=== PATIENT | male | born 1975 | race Caucasian/White ===

== ENCOUNTER 2019-05-07 19:10 | Inpatient (IN) | payer OTHER ==
[~2019-05-07] VITALS: Ht 182.9 cm; Wt 61.2 kg
[2019-05-07 19:58] LABS: BASOPHILS ABSOLUTE AUTO 0.04 K/mm3 (0.00-0.23); BASOPHILS PERCENT AUTO 0 % (0-2); EOSINOPHILS PERCENT AUTO 0 % (0-6); Hematocrit 46.8 % (37.0-53.0); Hemoglobin 16.4 g/dL (13.5-17.5); IMMATURE GRAN ABSOLUTE AUTO 0.09 K/mm3 (0.00-0.10); IMMATURE GRAN PERCENT AUTO 1 % (0-1); LYMPHOCYTES ABSOLUTE AUTO 0.84 K/mm3 (0.84-5.20); LYMPHOCYTES PERCENT AUTO 7 % (21-46); MONOCYTES ABSOLUTE AUTO 1.46 K/mm3 (0.16-1.47); MONOCYTES PERCENT AUTO 11 % (4-13); Mean Corpuscular HGB 33.4 pg (26.0-34.0); Mean Corpuscular Volume 95 fL (80-100); Mean Platelet Volume 8.9 fL (9.1-12.4); NEUTROPHILS ABSOLUTE AUTO 10.43 K/mm3 (1.96-9.15); NEUTROPHILS PERCENT AUTO 81 % (41-73); Platelet Count 207 K/mm3 (150-400); RDW Coefficient Variation 11.9 % (11.7-14.2); RDW Standard Deviation 41.8 fL (35.1-46.3); Red Blood Cell Count 4.91 M/mm3 (4.30-5.90); White Blood Cell Count 12.86 K/mm3 (4.00-11.30)
[2019-05-07 20:19] LABS: Alanine Aminotransfer (ALT/SGP 22 U/L (12-78); Albumin, Blood 3.5 g/dL (3.4-5.0); Albumin/Globulin Ratio 0.7 (0.8-1.8); Alk Phos 98 U/L (50-136); Anion Gap 6 mmol/L (6-16); Aspartate Aminotrans (AST/SGOT 21 U/L (12-37); Bilirubin, Total 0.5 mg/dL (0.1-1.0); Blood Urea Nitrogen 10 mg/dL (8-24); Bun/Creatinine Ratio 8.3 (12.0-20.0); CO2, Blood 27 mmol/L (21-32); Calcium, Blood 9.2 mg/dL (8.5-10.1); Chloride, Blood 94 mmol/L (98-108); Globulin, Blood 4.8 g/dL (2.2-4.0); Glomerular Filtration Rate >60 (60-); Glucose, Blood 133 mg/dL (70-99); Potassium, Blood 3.5 mmol/L (3.5-5.5); Sodium, Blood 127 mmol/L (136-145); Total Protein, Blood 8.3 g/dL (6.4-8.2)
[2019-05-07 20:40] LABS: Source, Urine Clean Catch
[2019-05-07 20:45] LABS: Appearance, Urine Clear (Clear); Bilirubin, Urine Neg (Neg); Blood, Urine 4+ (Neg); Color, Urine Amber (P-Yellow); Glucose Qualitative, Urine Neg (Neg); Ketones, Urine Neg (Neg); Leukocyte Esterase, Urine 3+ (Neg); Nitrite, Urine Neg (Neg); Protein, Urine 3+ (Neg); Specific Gravity, Urine 1.015 (1.003-1.022); Urobilinogen, Urine 1+ (Normal)
[2019-05-07 20:51] LABS: Bacteria Many /hpf; Squamous Epithelial Cells Not Seen /hpf (Few); White Blood Cells, Urine 50-100 /hpf (0-5)
--- NOTE | 2019-05-08 01:23 | NUR ---
PATIENT IS A NEW ADMIT FROM THE ED. AXOX 4 AND INDEPENDENT. SELF TRANSFER FROM [facility] TO BED. DENIES PAIN, SOB, AND N/V. VSS/AFEBRILE. PATIENT ORIENTED TO ROOM AND CALL LIGHT SYSTEM. ON ROOM AIR. TEMP DOWN FROM 101.4 TO 98.6. PATIENT REFUSED FLU VACCINE AND LOVENOX INJECTION. WATCHING TV. CALL LIGHT IN REACH. WILL CONTINUE TO MONITOR.
--- NOTE | 2019-05-08 01:43 | NUR ---
NS INFUSING AT 100 mL/HR PER EMAR. PATIENT REFUSED TO SIGN BLOOD CONSENT FORM AND REFUSED SCUDS. WATCHING TV. CALL LIGHT IN REACH.
--- NOTE | 2019-05-08 04:40 | NUR ---
SHIFT SUMMARY PATIENT HAD NO ACUTE CHANGES OBSERVED. AXOX 4 AND INDEPENDENT IN THE ROOM. PIV REMAINS INTACT. NS INFUSING AT 100 mL/HR. DENIES PAIN, SOB, AND N/V. VSS/AFEBRILE. REPORTS SMOKES CANNABIS 3 X'S/DAY. AND CEDS 1/3 PK TO ONE PACK/DAY. HX OF ETOH DRINKING 6 PACK BEER/DAY UP TO TWO WEEKS AGO. REFUSED FLU VACCINE, SCUDS, LOVENOX, AND SIGNING BLOOD CONSENT FORM. WATCHED TV ON/OFF T/O THE SHIFT. COOPERATIVE WITH CARE. CALL LIGHT IN REACH. BED IN LOWEST POSITION. WILL CONTINUE TO MONITOR UNTIL DAY SHIFT NURSE ASSUMES CARE.
[2019-05-08 05:08] LABS: BASOPHILS ABSOLUTE AUTO 0.02 K/mm3 (0.00-0.23); BASOPHILS PERCENT AUTO 0 % (0-2); EOSINOPHILS PERCENT AUTO 0 % (0-6); Hemoglobin 14.4 g/dL (13.5-17.5); IMMATURE GRAN ABSOLUTE AUTO 0.03 K/mm3 (0.00-0.10); IMMATURE GRAN PERCENT AUTO 0 % (0-1); LYMPHOCYTES ABSOLUTE AUTO 0.95 K/mm3 (0.84-5.20); LYMPHOCYTES PERCENT AUTO 10 % (21-46); MONOCYTES ABSOLUTE AUTO 1.02 K/mm3 (0.16-1.47); MONOCYTES PERCENT AUTO 10 % (4-13); Mean Corpuscular HGB Conc 34.3 g/dL (31.5-36.5); Mean Corpuscular Volume 96 fL (80-100); Mean Platelet Volume 9.2 fL (9.1-12.4); NEUTROPHILS ABSOLUTE AUTO 7.86 K/mm3 (1.96-9.15); NEUTROPHILS PERCENT AUTO 80 % (41-73); Platelet Count 163 K/mm3 (150-400); RDW Coefficient Variation 11.9 % (11.7-14.2); RDW Standard Deviation 42.7 fL (35.1-46.3); Red Blood Cell Count 4.36 M/mm3 (4.30-5.90); White Blood Cell Count 9.88 K/mm3 (4.00-11.30)
[2019-05-08 05:35] LABS: Anion Gap 7 mmol/L (6-16); Blood Urea Nitrogen 11 mg/dL (8-24); Bun/Creatinine Ratio 8.9 (12.0-20.0); CO2, Blood 24 mmol/L (21-32); Calcium, Blood 8.1 mg/dL (8.5-10.1); Chloride, Blood 102 mmol/L (98-108); Creatinine, Blood 1.24 mg/dL (0.60-1.20); Glomerular Filtration Rate >60 (60-); Glucose, Blood 118 mg/dL (70-99); Potassium, Blood 3.6 mmol/L (3.5-5.5); Sodium, Blood 133 mmol/L (136-145)
--- NOTE | 2019-05-08 09:30 | NUR ---
PT PLEASANT COOP DENIES PAIN. 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 HOPING TO GO TO WORK SOON. H/R REG, NO MURMER NOTED. NO TELE. LUNGS CLEAR, RESP EASY, UNLABORED, ON R.A. BT X4 LAST BM LOOSE LAST NITE. VOIDS INDEPENDANT TO BATHROOM. BED IN LOW POSITION, CALL LITE IN REACH, CALLS APPROP
--- NOTE | 2019-05-08 18:22 | NUR ---
PT GOING OUT TO SMOKE
--- NOTE | 2019-05-09 06:24 | NUR ---
SHIFT SUMMARY NO ACUTE EVENTS OVERNIGHT. PATIENT UPSET THAT HE IS ADMITTED TO HOSPITAL FOR MULTIPLE DAYS. EXPLAINED TO PATIENT THE NEED TO WAIT FOR BLOOD CULTURES AND PATIENT VOICED HIS UNDERSTANDING. PATIENT SPIKED FEVER OF 101.0, TYLENOL GIVEN AND PATIENT NOW AFEBRILE AND RESTING IN BED. WILL CONTINUE TO MONITOR.
--- NOTE | 2019-05-09 07:07 | NUR ---
PATIENT REFUSED TO LET ME GET THIS MORNING VITALS SIGNS DUE TO HIM SAYING THAT SOMEONE ALREAFY GOT THEM ABOUT 30 MINUTES AGO. PATIENT WAS NOT HAPPY THAT I WAS IN THERE AGAIN. RN NOTIFIED.
--- NOTE | 2019-05-09 16:07 | NUR ---
SHIFT SUMMARY: PT HAS BEEN A/O AND DENIES PAIN. FIRST THING THIS MORNING THE PT WAS ASKING ABOUT WHEN HE CAN LEAVE. HIS DEMEANOR IS VERY DEFENSIVE AND ACCUSATORY. HE ASKED ABOUT THE SCHEDULING OF HIS IV ABO AND WHEN THIS NURSE REVIEWED THE ORDER WITH HIM HE SAID THAT WAS DIFFERENT THAN WHAT THE NIGHT NURSE TOLD HIM AND SAID THAT "THEY" MUST HAVE LIED TO HIM. THIS NURSE ASSURED HIM THAT THE ABO ARE DOSED AND ORDERED BY THE DOCTOR AND THE PHARMACY. PT REQUESTED TO TAKE A SHOWER. THIS NURSE ASSISTED HIM TO SET UP AND DISCONNECT HIM FROM THE IV. HE ASKED WHY IT NEEDED TO BE COVERED SINCE IT HAD NOT BEEN COVERED IN THE PAST. THIS NURSE EXPLAINED THAT BEST PRACTICE IS TO MAKE SURE THE IV SITE STAYS CLEAN AND DRY. PT GOES OUTSIDE TO SMOKE AND IS UP AD LAITH IN HIS ROOM. PT IS ABLE TO MAKE HIS NEEDS KNOWN AND CALLS FOR HELP WHEN NEEDED.
--- NOTE | 2019-05-10 05:34 | NUR ---
SHIFT SUMMARY NO ACUTE EVENTS OVERNIGHT.PATIENT VERBALLY OFFENSIVE ABOUT PREVIOUS NURSING STAFF. REQUESTED MULTIPLE TIMES TO BE DISCONNECTED FROM IV SO THAT HE MAY GO DOWNSTAIRS. UP INDEPENDENT. AAOX4. WILL CONTINUE TO MONITOR.
[2019-05-10] MEDS ORDERED: LEVO750 PO (10:12)
--- NOTE | 2019-05-10 10:28 | NUR ---
PT IS DCD HOME VIA PRIVATE CAR. RX FAXED TO [facility] PER HIS REQUEST. ALL MEDS/INSTRUCTIONS REVIEWED WITH PT WHO VERBALIZED AN UNDERSTANDING. IV WAS REMOVED WITH NO ISSUE. PT DOES NOT HAVE A PCP AND DECLINED ONE PER CASE MANAGEMENT. ALL PERSONAL BELONGINGS SENT WITH PT. PT STABLE UPON DC.
== END 2019-05-10 10:37 | disposition home or self-care (01) | DRG 872 ==
LOC: ER 19:10 → MEDS 23:46
PROVIDERS: Physician Assistant; ADMIT Family Medicine
DX: A41.51 Sepsis due to Escherichia coli [E. coli] (principal); N12 Tubulo-interstitial nephritis, not specified as acute or chronic; E87.1 Hypo-osmolality and hyponatremia; F17.210 Nicotine dependence, cigarettes, uncomplicated; F10.11 Alcohol abuse, in remission
CPT/HCPCS: 36415; 74176; 80048; 80053; 81001; 83605; 85025; 87040; 87077; 87086; 87186; 96361; 96365; 96366; 96375; 99285-25; A9270; A9270-GY; J0696; J1885; J7030

== ENCOUNTER 2019-10-20 16:09 | Inpatient (IN) | payer SELFPAY ==
[~2019-10-20] VITALS: Ht 182.9 cm; Wt 56.7 kg
[~2019-10-20 16:09] MED LIST: LEVO750 PO
[2019-10-20 16:43] LABS: BASOPHILS ABSOLUTE AUTO 0.09 K/mm3 (0.00-0.23); BASOPHILS PERCENT AUTO 0 % (0-2); EOSINOPHILS PERCENT AUTO 0 % (0-6); Hematocrit 50.6 % (37.0-53.0); Hemoglobin 17.1 g/dL (13.5-17.5); IMMATURE GRAN ABSOLUTE AUTO 0.14 K/mm3 (0.00-0.10); IMMATURE GRAN PERCENT AUTO 1 % (0-1); LYMPHOCYTES ABSOLUTE AUTO 0.65 K/mm3 (0.84-5.20); LYMPHOCYTES PERCENT AUTO 3 % (21-46); MONOCYTES ABSOLUTE AUTO 0.98 K/mm3 (0.16-1.47); MONOCYTES PERCENT AUTO 5 % (4-13); Mean Corpuscular HGB 32.6 pg (26.0-34.0); Mean Corpuscular HGB Conc 33.8 g/dL (31.5-36.5); Mean Corpuscular Volume 96 fL (80-100); Mean Platelet Volume 8.5 fL (9.1-12.4); NEUTROPHILS ABSOLUTE AUTO 19.58 K/mm3 (1.96-9.15); NEUTROPHILS PERCENT AUTO 91 % (41-73); Platelet Count 306 K/mm3 (150-400); RDW Coefficient Variation 12.4 % (11.7-14.2); RDW Standard Deviation 44.7 fL (35.1-46.3); Red Blood Cell Count 5.25 M/mm3 (4.30-5.90); White Blood Cell Count 21.44 K/mm3 (4.00-11.30)
[2019-10-20 17:00] LABS: Albumin, Blood 3.7 g/dL (3.4-5.0); Albumin/Globulin Ratio 0.7 (0.8-1.8); Bilirubin, Total 1.6 mg/dL (0.1-1.0); Calcium, Blood 9.3 mg/dL (8.5-10.1); Creatinine, Blood 1.45 mg/dL (0.60-1.20); Globulin, Blood 5.3 g/dL (2.2-4.0); Potassium, Blood 3.4 mmol/L (3.5-5.5)
[2019-10-20 17:19] LABS: Source, Urine Clean Catch
[2019-10-20 17:23] LABS: Bilirubin, Urine Neg (Neg); Blood, Urine 4+ (Neg); Glucose Qualitative, Urine Neg (Neg); Ketones, Urine Neg (Neg); Leukocyte Esterase, Urine 3+ (Neg); Nitrite, Urine Neg (Neg); Protein, Urine 2+ (Neg); Urobilinogen, Urine NORM (Normal)
[2019-10-20 17:31] LABS: Appearance, Urine Hazy (Clear); Color, Urine Yellow (P-Yellow)
[2019-10-20 17:33] LABS: White Blood Cells, Urine 50-100 /hpf (0-5)
[2019-10-20 17:35] LABS: Bacteria Mod /hpf; Squamous Epithelial Cells Not Seen /hpf (Few)
[2019-10-21 05:42] LABS: BASOPHILS ABSOLUTE AUTO 0.04 K/mm3 (0.00-0.23); BASOPHILS PERCENT AUTO 0 % (0-2); EOSINOPHILS ABSOLUTE AUTO 0.04 K/mm3 (0.00-0.68); EOSINOPHILS PERCENT AUTO 0 % (0-6); Hematocrit 42.2 % (37.0-53.0); Hemoglobin 14.1 g/dL (13.5-17.5); IMMATURE GRAN ABSOLUTE AUTO 0.06 K/mm3 (0.00-0.10); IMMATURE GRAN PERCENT AUTO 0 % (0-1); LYMPHOCYTES ABSOLUTE AUTO 1.11 K/mm3 (0.84-5.20); LYMPHOCYTES PERCENT AUTO 8 % (21-46); MONOCYTES ABSOLUTE AUTO 0.97 K/mm3 (0.16-1.47); MONOCYTES PERCENT AUTO 7 % (4-13); Mean Corpuscular HGB 32.7 pg (26.0-34.0); Mean Corpuscular HGB Conc 33.4 g/dL (31.5-36.5); Mean Corpuscular Volume 98 fL (80-100); Mean Platelet Volume 8.6 fL (9.1-12.4); NEUTROPHILS ABSOLUTE AUTO 11.27 K/mm3 (1.96-9.15); NEUTROPHILS PERCENT AUTO 84 % (41-73); Platelet Count 241 K/mm3 (150-400); RDW Coefficient Variation 12.4 % (11.7-14.2); RDW Standard Deviation 45.1 fL (35.1-46.3); Red Blood Cell Count 4.31 M/mm3 (4.30-5.90); White Blood Cell Count 13.49 K/mm3 (4.00-11.30)
[2019-10-21 05:58] LABS: Anion Gap 4 mmol/L (6-16); Blood Urea Nitrogen 11 mg/dL (8-24); Bun/Creatinine Ratio 9.1 (12.0-20.0); CO2, Blood 24 mmol/L (21-32); Calcium, Blood 8.3 mg/dL (8.5-10.1); Chloride, Blood 107 mmol/L (98-108); Creatinine, Blood 1.21 mg/dL (0.60-1.20); Glomerular Filtration Rate >60 (60-); Glucose, Blood 102 mg/dL (70-99); Magnesium, Blood 2.3 mg/dL (1.6-2.4); Sodium, Blood 135 mmol/L (136-145)
[2019-10-22 04:47] LABS: Hematocrit 41.6 % (37.0-53.0); Hemoglobin 13.8 g/dL (13.5-17.5); Mean Corpuscular HGB 32.3 pg (26.0-34.0); Mean Corpuscular HGB Conc 33.2 g/dL (31.5-36.5); Mean Corpuscular Volume 97 fL (80-100); Mean Platelet Volume 8.8 fL (9.1-12.4); Platelet Count 234 K/mm3 (150-400); RDW Coefficient Variation 12.4 % (11.7-14.2); RDW Standard Deviation 44.5 fL (35.1-46.3); Red Blood Cell Count 4.27 M/mm3 (4.30-5.90); White Blood Cell Count 5.95 K/mm3 (4.00-11.30)
[2019-10-22 05:07] LABS: Albumin, Blood 2.6 g/dL (3.4-5.0); Anion Gap 6 mmol/L (6-16); Blood Urea Nitrogen 9 mg/dL (8-24); Bun/Creatinine Ratio 7.6 (12.0-20.0); CO2, Blood 24 mmol/L (21-32); Calcium, Blood 8.4 mg/dL (8.5-10.1); Chloride, Blood 107 mmol/L (98-108); Creatinine, Blood 1.19 mg/dL (0.60-1.20); Glomerular Filtration Rate >60 (60-); Glucose, Blood 93 mg/dL (70-99); Phosphorus, Blood 2.9 mg/dL (2.5-4.9); Potassium, Blood 3.9 mmol/L (3.5-5.5); Sodium, Blood 137 mmol/L (136-145)
[2019-10-23] MEDS ORDERED: ACET325 PO (09:56)
[2019-10-23] MEDS ORDERED: LEVO750 PO (09:56)
== END 2019-10-23 11:38 | disposition home or self-care (01) | DRG 872 ==
LOC: ER 16:09 → MEDS 19:42 → ENPENDDIS 10-23 10:00 → MEDS 10-23 11:38
PROVIDERS: Emergency Medicine; ADMIT Internal Medicine
DX: A41.51 Sepsis due to Escherichia coli [E. coli] (principal); N10 Acute pyelonephritis; N17.9 Acute kidney failure, unspecified; E87.1 Hypo-osmolality and hyponatremia; E87.6 Hypokalemia; E83.39 Other disorders of phosphorus metabolism; F17.210 Nicotine dependence, cigarettes, uncomplicated
CPT/HCPCS: 36415; 76770; 80048; 80053; 80069; 81001; 83605; 83735; 84100; 85025; 85027; 87077; 87086; 87186; 96361; 96365; 96375; 99284-25; A9270; J0696; J0780; J1170; J1200; J3480; J7030; J7060

== ENCOUNTER → 2024-08-27 | Outpatient (CLI) | payer OTHER ==
[~2024-08-27] MED LIST changes: +ACET325 PO
== END ==
LOC: LAB 14:57 → LAB SHORT 14:57
DX: N39.0 Urinary tract infection, site not specified (principal)
CPT/HCPCS: 87077; 87086; 87186